=== PATIENT | female | born 1980 | race Caucasian/White ===

== ENCOUNTER 2024-07-27 12:59 | Outpatient (CLI) | payer OTHER, SELFPAY ==
--- NOTE | 2024-07-27 13:00 | CRLHL7_ITS ---
For Patients: As a result of the Century Cures Act, medical imaging exams and procedure reports are released immediately into your electronic medical record. You may view this report before your referring provider. If you have questions, please contact your health care provider. OB ULTRASOUND JEFF by LMP: 09/22/2024. GA: 31w, 6d. Single. INDICATION: Biophysical profile and OB follow-up. CERVIX: Visualized. POSITIONING: Vertex. AMNIOTIC FLUID: 16.8 cm SDP BIOPHYSICAL PROFILE: Total score: 8/8. Gross body movements: 2. tone: 2. Respiratory activity: 2. Amniotic fluid: 2. (SDP N: Increase 2 x 1 cm) PLACENTA: Technique: Transabdominal. PLACENTA POSITION: Anterior. DOPPLER: heart rate: 144 bpm. Biometry: BPD: 8.5 cm. 34 w, 2 d, 95.6%. HC: 31.2 cm. 35 w, 0 d, 89%. AC: 30.1 cm. 34 w, 0 d, 95%. FL: 6.5 cm. 33 w, 4 d, 81%. FL/AC ratio: 21.6 percent. HC/AC ratio: 1.04. EFW: 2333 g. Weight: 5 lbs, 12 oz. age by this US: 34 w, 2 d. JEFF by this US: 09/05/2024. Percentile by JEFF: 95%. IMPRESSION: 1. Single live intrauterine gestation 34 weeks 2 days, JEFF 09/05/2024. Estimated weight 2333 grams lying at the 95th percentile. 2. Biophysical profile score 8 of 8. Sharmin Morales M.D. Diagnostic/Breast Radiologist [email or web address]/Dictated by: Sharmin Morales MD @ 07/30/2024 6:11:00 PM (Electronically Signed)
== END 2024-07-27 13:00 | disposition home or self-care (01) ==
LOC: US 13:00
PROVIDERS: PCP Family Medicine; Visit Provider Obstetrics & Gynecology
DX: Z34.93 Encounter for supervision of normal pregnancy, unspecified, third trimester (principal); Z3A.31 31 weeks gestation of pregnancy
CPT/HCPCS: 76816; 76819

== ENCOUNTER 2024-08-03 11:33 | Outpatient (CLI) | payer OTHER, SELFPAY | END 2024-08-03 11:34 | disposition home or self-care (01) | PROVIDERS: PCP Family Medicine; Visit Provider Obstetrics & Gynecology | DX: O13.3 Gestational [pregnancy-induced] hypertension without significant proteinuria, third trimester (principal); Z3A.32 32 weeks gestation of pregnancy | CPT/HCPCS: 82565; 82570; 84156; 84443; 84450; 84460 ==

== ENCOUNTER 2024-08-04 08:17 | Outpatient (CLI) | payer OTHER, SELFPAY | END 2024-08-04 08:18 | disposition home or self-care (01) | LOC: NFLDREF 13:34 | PROVIDERS: PCP Family Medicine; Referring Provider Family Medicine; Visit Provider Obstetrics & Gynecology | DX: O13.3 Gestational [pregnancy-induced] hypertension without significant proteinuria, third trimester (principal); Z3A.32 32 weeks gestation of pregnancy | CPT/HCPCS: 82565; 84450; 84460; 84520; 84550 ==

== ENCOUNTER 2024-08-06 08:48 | Outpatient (CLI) | payer OTHER, SELFPAY | END 2024-08-06 08:49 | disposition home or self-care (01) | LOC: NFLDREF 20:01 | PROVIDERS: PCP Family Medicine; Referring Provider Family Medicine; Visit Provider Obstetrics & Gynecology | DX: O16.9 Unspecified maternal hypertension, unspecified trimester (principal) | CPT/HCPCS: 82570; 84156 ==

== ENCOUNTER 2024-08-09 12:25 | Outpatient (CLI) | payer OTHER, SELFPAY ==
[2024-08-09] VITALS (9 sets, daily range): BP systolic 122–131; BP diastolic 73–93; PULSE 68–84; O2SAT 100
[2024-08-09 13:17] LABS: Hematocrit 34.1 % (33.0-51.0); Hemoglobin* 11.6 gm/dL (12.0-16.0); Mean Corpuscular HGB Conc 34 gm/dL (32-36); Mean Corpuscular Hemoglobin 29 pg (26-34); Mean Corpuscular Volume 86 fL (80-100); Platelet Count* 226 K/uL (140-440); Red Blood Count 3.95 m/uL (4.00-5.20); White Blood Count* 9.12 K/uL (4.50-11.00)
[2024-08-09 13:18] LABS: Slide Review Reflex No
[2024-08-09 13:31] LABS: Alanine Aminotransferase* 28 U/L (4-35); Aspartate Amino Transferase* 43 U/L (12-35); Blood Urea Nitrogen* 10 mg/dL (5-24); Creatinine* 0.8 mg/dL (0.5-1.5); Estimated Glomerular Filt Rate 95 ml/min
[2024-08-09 13:32] LABS: Total Protein Urine 7 mg/dL
[2024-08-09 13:33] LABS: Protein Creatinine Ratio Urine 0.08 (0-0.19)
--- NOTE | 2024-08-09 19:58 | PC.OBNST ---
NST Note NST Note Start: 08/09/24 12:33 Freq: ONCE Status: Active Protocol: Document 08/09/24 17:50 JRS (Rec: 08/09/24 17:58 JRS Desktop) NST Note 4 Para (# of births) 1 EDC 09/22/24 Gestational Age In Weeks & Days 33 Weeks & 5 Days High Risk Factors High Blood Pressure - Preexisting Patient Presented with Complaint(s) of Other Other Complaints Pt. here for increased BP at home. Reactive Yes Appropriate for Gestational Age Yes RN Adrian RN Date 08/09/24 Reactive Yes Appropriate for Gestational Age Yes RN Eros Daley RN Date 08/09/24 OB NST charge Yes Complete NST Note via Write Note Yes The provider's electronic signature indicates the NST is reactive/appropriate for gestational age. *Note to provider: If an addendum is required, open the patient's chart and click on the note under the Nurse/Allied Health tab.
== END 2024-08-09 14:40 | disposition home or self-care (01) ==
LOC: OB OUT 12:25 → OB 12:26 → OB OUT 14:55
PROVIDERS: PCP Family Medicine; Visit Provider Obstetrics & Gynecology
DX: O10.913 Unspecified pre-existing hypertension complicating pregnancy, third trimester (principal); Z3A.33 33 weeks gestation of pregnancy
CPT/HCPCS: 36415; 59025; 82565; 82570; 84156; 84450; 84460; 84520; 85027; G0463

== ENCOUNTER 2024-08-10 12:08 | Outpatient (CLI) | payer OTHER, SELFPAY | END 2024-08-10 12:09 | disposition home or self-care (01) | LOC: NFLDREF 12:10 | PROVIDERS: PCP Family Medicine; Visit Provider Obstetrics & Gynecology | DX: O10.913 Unspecified pre-existing hypertension complicating pregnancy, third trimester (principal); Z3A.33 33 weeks gestation of pregnancy | CPT/HCPCS: 82565; 82570; 84156; 84450; 84460; 84520 ==

== ENCOUNTER 2024-08-15 15:37 | Outpatient (CLI) | payer OTHER, SELFPAY | END 2024-08-15 15:38 | disposition home or self-care (01) | PROVIDERS: PCP Family Medicine; Visit Provider Obstetrics & Gynecology | DX: O10.913 Unspecified pre-existing hypertension complicating pregnancy, third trimester (principal); Z3A.34 34 weeks gestation of pregnancy | CPT/HCPCS: 76819; 82565; 82570; 84156; 84450; 84460; 84520 ==

== ENCOUNTER 2024-08-16 11:40 | Outpatient (CLI) | payer OTHER, SELFPAY ==
[2024-08-16] VITALS (9 sets, daily range): BP systolic 117–131; BP diastolic 85–89; PULSE 68–86; TEMP 37; O2SAT 97–99
[2024-08-16 12:26] LABS: Hematocrit 36.3 % (33.0-51.0); Mean Corpuscular HGB Conc 33 gm/dL (32-36); Mean Corpuscular Hemoglobin 29 pg (26-34); Mean Corpuscular Volume 87 fL (80-100); Platelet Count* 193 K/uL (140-440); Red Blood Count 4.16 m/uL (4.00-5.20); White Blood Count* 8.69 K/uL (4.50-11.00)
[2024-08-16 12:29] LABS: Slide Review Reflex No
[2024-08-16 12:42] LABS: Aspartate Amino Transferase* 57 U/L (12-35); Creatinine* 0.7 mg/dL (0.5-1.5); Estimated Glomerular Filt Rate 111 ml/min
[2024-08-16 12:43] LABS: Alanine Aminotransferase* 61 U/L (4-35); Blood Urea Nitrogen* 12 mg/dL (5-24)
[2024-08-16 12:44] LABS: Total Protein Urine 11 mg/dL
[2024-08-16 12:45] LABS: Creatinine Urine 23.4 mg/dL; Protein Creatinine Ratio Urine 0.47 (0-0.19)
[2024-08-16] MEDS: BETAMETHASONE SOD PHOS/ACETATE 6 MG/ML ML 12 MG IM (13:11)
--- NOTE | 2024-08-16 13:32 | PC.OBNST ---
NST Note NST Note Start: 08/16/24 11:50 Freq: ONCE Status: Active Protocol: Document 08/16/24 13:29 MANDAEN (Rec: 08/16/24 13:31 MANDAEN [id number]) NST Note 4 Para (# of births) 1 EDC 09/22/24 Gestational Age In Weeks & Days 34 Weeks & 5 Days High Risk Factors High Blood Pressure - Preexisting,Advanced Maternal Age,History of Labor/ Delivery Patient Presented with Complaint(s) of Other Other Complaints Provider requesting patient come and be seen for blood pressure evaluations and repeat Pre E labs. Reactive Yes Appropriate for Gestational Age Yes LUZ MARINA Perez Date 08/16/24 Reactive Yes Appropriate for Gestational Age Yes LUZ MARINA López Date 08/16/24 OB NST charge Yes Complete NST Note via Write Note Yes The provider's electronic signature indicates the NST is reactive/appropriate for gestational age. *Note to provider: If an addendum is required, open the patient's chart and click on the note under the Nurse/Allied Health tab.
== END 2024-08-16 13:10 | disposition home or self-care (01) ==
LOC: OB OUT 11:40 → OB 11:40
PROVIDERS: PCP Family Medicine; Visit Provider Obstetrics & Gynecology
DX: O10.913 Unspecified pre-existing hypertension complicating pregnancy, third trimester (principal); O09.523 Supervision of elderly multigravida, third trimester; Z3A.34 34 weeks gestation of pregnancy
CPT/HCPCS: 36415; 59025; 82565; 82570; 84156; 84450; 84460; 84520; 85027; G0463; J0702

== ENCOUNTER 2024-08-17 11:28 | Outpatient (CLI) | payer OTHER, SELFPAY ==
[2024-08-17 11:33] VITALS: BP 128/86; PULSE 71
--- NOTE | 2024-08-17 11:33 | CRLHL7_ITS ---
For Patients: As a result of the Century Cures Act, medical imaging exams and procedure reports are released immediately into your electronic medical record. You may view this report before your referring provider. If you have questions, please contact your health care provider. INDICATION: Right upper quadrant abdomen pain. TECHNIQUE: Ultrasound abdomen limited. Sonographic images of the right upper quadrant were obtained using aguilar-scale and color Doppler images. COMPARISON: None. FINDINGS: Liver: Normal in size and echotexture. No suspicious masses. No intrahepatic biliary dilatation. Gallbladder: No stones or sludge. Normal wall thickness. No pericholecystic fluid. Negative sonographic Mcwilliams`s sign. Common bile duct: 3 mm. Pancreas: Unremarkable. Right kidney: Normal in size. Normal echotexture and cortex. No suspicious masses, stones, or hydronephrosis. Vasculature: Proximal abdominal aorta and IVC are unremarkable. IMPRESSION: Unremarkable right upper quadrant ultrasound. Dictated by Joe Mendoza MD @ 08/17/2024 12:42:01 PM (Electronically Signed)
--- NOTE | 2024-08-17 11:33 | CRLHL7_ITS ---
For Patients: As a result of the Century Cures Act, medical imaging exams and procedure reports are released immediately into your electronic medical record. You may view this report before your referring provider. If you have questions, please contact your health care provider. INDICATION: Nonreassuring heart tones in clinic COMPARISON: 08/15/2024 TECHNIQUE: Montelongo-scale and color Doppler of the gravid uterus and fetus from a transabdominal approach. FINDINGS: Established gestational age: 34 weeks 6 days Single intrauterine gestation in a vertex presentation. heart rate is 139 bpm. No pleural effusion, pericardial effusion, ascites, or skin edema. Biparietal diameter: 8.8 cm Head circumference: 32.0 cm Abdominal circumference: 32.7 cm Femur length: 7.0 cm HC/AC: 0.98, normal. The composite ultrasound estimated gestational age is 36 weeks 1 day. The estimated weight is 2891 grams, or 6 pounds 6 ounces. This corresponds to the 84th percentile for gestational age. The placenta is anterior. No previa. No periplacental hemorrhage. WELLBEING tone: 2/2 movement: 2/2 breathin/2 Amniotic fluid volume: 2/2 The single deepest vertical pocket measures: 8.7 cm. The amniotic fluid index is 25.5 cm, recently 22.2 cm. IMPRESSION: 1. Single intrauterine gestation. 2. heart rate is 139 beats per minute and regular. 3. Biophysical profile score is 8/8. 4. Polyhydramnios with an amniotic fluid index of 25.5 cm. No hydrops. The stomach is seen in a single view and appears normal. Dictated by Anushka Lizama MD @ 08/17/2024 12:46:57 PM (Electronically Signed)
[2024-08-17 11:34] VITALS: RESP 18; TEMP 36.5
[2024-08-17 12:21] VITALS: BP 137/74; PULSE 83
[2024-08-17 12:36] VITALS: BP 129/80; PULSE 86
[2024-08-17] MEDS: ACETAMINOPHEN 500 MG TABLET 1000 MG PO (12:37)
[2024-08-17] MEDS: BETAMETHASONE SOD PHOS/ACETATE 6 MG/ML ML 12 MG IM (12:37)
[2024-08-17 13:11] VITALS: BP 129/79; PULSE 72
--- NOTE | 2024-08-17 14:39 | PC.OBNST ---
NST Note NST Note Start: 08/17/24 11:33 Freq: ONCE Status: Active Protocol: Document 08/17/24 14:36 VERNA (Rec: 08/17/24 14:39 VERNA Desktop) NST Note 4 Para (# of births) 1 EDC 09/22/24 Gestational Age In Weeks & Days 34 Weeks & 6 Days High Risk Factors High Blood Pressure - Preexisting Patient Presented with Complaint(s) of Other Other Complaints Pt. presents from [facility] with orders to continuous EFM, Abdominal US, include Growth and BPP, Labs pending. Dx now Chronic HTN with Superimposed Pre Eclampsia without severe features. Reactive Yes Appropriate for Gestational Age Yes LUZ MARINA Cancino Date 08/17/24 Reactive Yes Appropriate for Gestational Age Yes LUZ MARINA Alvarado RN Date 08/17/24 OB NST charge Yes Complete NST Note via Write Note Yes The provider's electronic signature indicates the NST is reactive/appropriate for gestational age. *Note to provider: If an addendum is required, open the patient's chart and click on the note under the Nurse/Allied Health tab.
== END 2024-08-17 14:20 | disposition home or self-care (01) ==
LOC: OB OUT 11:31 → OB 11:32
PROVIDERS: PCP Family Medicine; Visit Provider Obstetrics & Gynecology
DX: O10.913 Unspecified pre-existing hypertension complicating pregnancy, third trimester (principal); Z3A.34 34 weeks gestation of pregnancy
CPT/HCPCS: 59025; 76705; 76816; 76819; 82565; 82570; 84156; 84450; 84460; 84520; 84550; G0463; A9270; J0702

== ENCOUNTER 2024-08-21 10:37 | Outpatient (CLI) | payer OTHER, SELFPAY | END 2024-08-21 10:38 | disposition home or self-care (01) | PROVIDERS: PCP Family Medicine; Visit Provider Obstetrics & Gynecology | DX: O11.3 Pre-existing hypertension with pre-eclampsia, third trimester (principal); O09.523 Supervision of elderly multigravida, third trimester; Z3A.35 35 weeks gestation of pregnancy | CPT/HCPCS: 82565; 84450; 84460; 84520; 84550 ==

== ENCOUNTER 2024-08-21 21:33 | Inpatient (IN) | payer OTHER, SELFPAY ==
[2024-08-21 21:38] VITALS: PULSE 78; O2SAT 97
[2024-08-21 21:43] VITALS: BP 147/91; PULSE 72; PULSE 73; PULSE 76; O2SAT 93; O2SAT 96
[2024-08-21] MEDS: LACTATED RINGERS 1000 ML 1,000 ML 800 ML IV (21:45)
[2024-08-21 21:48] VITALS: PULSE 73; O2SAT 97
[2024-08-21] MEDS: MAGNESIUM IV 4 GM/100 ML PIGGYBACK IVPB (21:48)
[2024-08-21 21:50] VITALS: BP 147/89; PULSE 74
[2024-08-21 21:54] LABS: Hemoglobin* 10.9 gm/dL (12.0-16.0); Mean Corpuscular HGB Conc 34 gm/dL (32-36); Mean Corpuscular Hemoglobin 30 pg (26-34); Mean Corpuscular Volume 87 fL (80-100); Platelet Count* 203 K/uL (140-440); Red Blood Count 3.68 m/uL (4.00-5.20)
[2024-08-21 21:56] LABS: Slide Review Reflex No
[2024-08-21 22:06] VITALS: BMI 28.8
[2024-08-21 22:13] LABS: Alanine Aminotransferase* 119 U/L (4-35); Aspartate Amino Transferase* 121 U/L (12-35); Creatinine* 0.7 mg/dL (0.5-1.5); Est. Creatinine Clearance* 95.17; Estimated Glomerular Filt Rate 111 ml/min
--- NOTE | 2024-08-21 22:14 | PM.OBHPCS1 ---
OB - H&P: HPI History of Present Illness Chief complaint: Maternity Narrative: Jb Dyer is a 43 year old female admitted for superimposed preeclampsia with severe features due to transaminitis. is otherwise complicated by chronic HTN, prior , AMA, IVF gestation, mild polyhydramnios, subclinical hypothyroidism, GERD. She was planning repeat delivery with bilateral salpingectomy. Jb has been followed closely over the last few days given blood pressure exacerbation with new finding of mild transaminitis. Today she was seen in the clinic for nurse visit for NST, where lab subsequently returned with significant increase in her liver function test. Recommended she present to care for admission and delivery in the setting of superimposed preeclampsia with severe features. On arrival, patient notes she is overall feeling well. Denies headache, vision changes, right upper quadrant pain, epigastric pain, chest pain or dyspnea. She denies regular/painful uterine contractions, vaginal bleeding or leaking of fluids. Endorses active movement. Specific Issues/Plans MD H&P # Chronic HTN with Superimposed Preeclampsia w/o severe features. Started on Labetalol 100mg BID 08/10/24, increase 200mg BID 08/15/24. H/o superimposed preeclampsia. baseline labs: normal, including normal protein:creatinine but no 24 hour urine Daily low dose aspirin HELLP labs 08/03: normal, aside from AST 42, protein:creatinine 0.30 Repeat HELLP labs 08/04: normal aside from AST 38 24 hour urine protein: 210 mg on 08/06 Delivery at 37 weeks-change repeat section to 09/01/24 Increasing trend liver enzymes, close monitoring for r/o of severity (34 weeks)-S/P Betamethasone x2 completed on 08/17/24. Abdominal US 08/17/24: Negative. #Mild Polyhydramnios PROMISE: 25.5cm 08/17/24 # Transfer of care from [place] # IVF with donor egg. Preimplantation genetic testing completed. Normal echocardiogram on 06/07/24. # H/o . Planning repeat with bilateral salpingectomy # Hypothyroidism Levothyroxine dose: 100mcg Check TSH and Free T4 each trimester 08/03 TSH = 1.480 # AMA Low risk NIPS Level 2 US # Low lying placenta - resolved on 06/07/24. monitoring plan: UPDATED 08/10/24 Twice weekly monitoring alternating BPP and NST Growth US every 4 weeks Weekly HELLP labs Labs: B positive, antibody negative, hgb 13.9, plt 286, rubella positive, rpr nonreactive, Hep B antibody positive, Hep B antigen negative, GC/chlam neg/neg, UC: mixed microbiota, Hep C negative, varicella positive. Baseline pre E: AST 24, ALT 15, P/C 0.19 TSH 5-20: 0.06, 8: 1.0 06-27-24: 1hr glucose: 78 Pap: 12-24-21: NIL, negative HPV Ultrasound: 02-11-24: single, IUP w/ CRL consistent with IVF transfer date and earlier US 04-20-24: Level 2 US: No anomalies. Incomplete anatomy survey d/t position. Intracardiac focus noted in left ventricle. Placenta appears low lying only 5mm from internal os. Cervical length too limited to assess. 06-07-24: Placenta is anterior and there is no evidence of previa. Normal amniotic fluid. biometry 87th percentile. Cervical length 27mm. anatomy survey completed and appears normal. 08/17/2024: Vertex, EFW: 2891 g, 84th percentile. Abdominal circumference: 93rd percentile. Single deepest pocket of amniotic fluid: 8.7 cm, PROMISE: 25.5 cm. BPP 06/01. Flu: [] Covid: completed, not up to date w/ booster. recommended. [] Tdap 06/27 RSV: 08/03/24 PFSH PFS Medical History (Updated 08/21/24 @ 22:58 by Phyllis Stoddard MD) Miscarriage ?O03.9 - Complete or unspecified spontaneous without complication (ICD-10) History of ectopic ?Z87.59 - Personal history of other complications of , childbirth and the puerperium (ICD-10) Surgical History (Updated 07/10/24 @ 23:22 by Aga Liang CNP) History of delivery ?Z98.891 - History of uterine scar from previous surgery (ICD-10) History of hysterosalpingogram (12/02/16) ?Z98.890 - Other specified postprocedural states (ICD-10) History of eye surgery (08/2020) ?Z98.890 - Other specified postprocedural states (ICD-10) Family History (Updated 06/28/24 @ 14:18 by Regi Berrios) Sister Lopez's syndrome Social History (Updated 07/05/24 @ 07:38 by Lynda Castro MA) What is your current living situation?: I presently have a place to live Problems where you live: no known problems In the past 12 months, utilities in danger of being shut off: no In past 12 months, lack of transportation kept you from medical appts, meetings, work, or getting things needed for daily living: no In the past 12 mos, have been you worried that your food would run out before you had money to buy more?: never true In the past 12 mos, the food you bought just didn't last and you didn't have money to buy more?: never true Smoking Status: Never smoker How often does anyone, including family, friends and others, physically hurt you: never How often does anyone, including family, friends and others, insult or talk down to you: never How often does anyone, including family, friends and others, threaten you with harm: never How often does anyone, including family, friends and others, scream or curse at you: never Little interest or pleasure in doing things: not at all Feeling down, depressed, or hopeless: not at all Meds Home Medications and Allergies Home Medications ?Medication ?Instructions ?Recorded ?Confirmed ?Type aspirin 81 mg tablet,delayed 81 mg PO QDAY 07/05/24 08/21/24 History release (Adult Aspirin Regimen) cholecalciferol (vitamin D3) 10 10 mcg PO QDAY 07/05/24 08/21/24 History mcg (400 unit) capsule docosahexaenoic acid 200 mg 200 mg PO DAILY PRN 07/05/24 08/21/24 History capsule ( DHA) famotidine 20 mg tablet 20 mg PO QDAY 07/05/24 08/21/24 History labetalol 100 mg tablet 200 mg PO BID 08/17/24 08/21/24 History Allergies Allergy/AdvReac Type Severity Reaction Status Date / Time amoxicillin (From Augmentin) AdvReac Mild Verified 08/21/24 22:10 clavulanic acid (From AdvReac Mild Verified 10/28/24 22:10 Augmentin) OB - H&P: Exam Physical Exam: Vital signs: Pulse BP Pulse Ox 74 147/89 H 97 08/21/24 21:50 08/21/24 21:50 08/21/24 21:48 Narrative: General: Alert and oriented, in no acute distress Psych: Appropriate mood and affect Heart: Regular rate and rhythm, no rubs murmurs or gallops Lungs: Clear to posterior auscultation throughout. No wheezes, rales or crackles. Abdomen: Gravid. No right upper quadrant or epigastric tenderness. Baby palpates vertex by Bandar's, EFW 2891g by US on 08/17/24. NST: Reactive NST. Baseline is 130bpm, moderate variability, several qualifying 15x15 accels present, no decelerations noted. [place]: Rare uterine contractions OB - Results Labs Labs: Short CBC 08/21/24 Range/Units 21:47 WBC 10.90 (4.50-11.00) K/uL Hgb 10.9 L (12.0-16.0) gm/dL Hct 32.0 L (33.0-51.0) % Plt Count 203 (140-440) K/uL Assessment and Plan Assessment and plan (1) Chronic hypertension complicating or reason for care during : Status: Acute (2) resulting from in-vitro fertilization: Status: Acute (3) GERD (gastroesophageal reflux disease): Status: Acute (4) Infertility: Status: Acute (5) Subclinical hypothyroidism: Status: Acute (6) Advanced maternal age (AMA), 40 years or greater: Status: Acute (7) Pre-eclampsia superimposed on chronic hypertension: Status: Acute Plan Jb is a 43yo at 35w3d GA admitted for superimposed preeclampsia with severe features. is otherwise complicated by chronic HTN, prior , AMA, IVF gestation, mild polyhydramnios, subclinical hypothyroidism, GERD. We discussed the diagnosis of superimposed preeclampsia with severe features in detail. Patient asymptomatic with mild range BP at this time. She is s/p RUQ US to rule out gallbladder pathology as the etiology behind her transaminitis on 08/16/24. In addition, this diagnosis is most consistent with her recent BP exacerbation necessitating increased labetolol. As such, I do recommend medically indicated delivery tonight. Patient had been planning a repeat with bilateral salpingectomy at term. She is certain she wishes to proceed with a repeat tonight. We extensively discussed the procedure in detail, including risks, benefits and alternatives. Reviewed the risk of hemorrhage, for which patient would be agreeable to blood transfusion and all indicated procedures (including hysterectomy) if absolutely necessary. Discussed pharmacologic and conservative surgical measures that would be performed 1st, where I will avoid Methergine given her preeclampsia severe features. Reviewed risk of infection and antibiotic prophylaxis. Discussed risk of damage to surrounding structures including uterus, tubes, ovaries, bowel, bladder, baby and blood vessels. Finally, Jb in her partner did re-discuss whether not they wish to proceed with permanent contraception via bilateral salpingectomy still given this unplanned late delivery. We reviewed the risks/benefits and discussed a very reasonable alternative would be a LARC (such as IUD). After this discussion, Jb is certain with her decision to proceed with bilateral salpingectomy. Written consent was obtained. - Initial BP is mild range, plan diligent BP monitor with treatment of sustained SRBP as necessary - Magnesium sulfate ongoing for seizure prophylaxis, plan to continue this for 24 hours - Repeat HELLP labs and obtain T/S on admission. Plan to trend HELLP labs Q6H while on mag. - Plan perioperative Ancef - BT B+ - Pediatrics to attend delivery in the setting of late delivery. Jb is s/p JAGUARZ on 08/17.
[2024-08-21] MEDS: MAGNESIUM Infusion 40 GM/1,000 ML IV.SOLN IVPB (22:22)
[2024-08-21 22:53] VITALS: BP 159/82; PULSE 76; RESP 18; TEMP 36.9
[2024-08-21] MEDS: LACTATED RINGERS 1000 ML 1,000 ML 125 ML IV (23:00)
[2024-08-21] MEDS: CEFAZOLIN 2 GM INJ IVP (23:15)
[2024-08-21] MEDS: OXYTOCIN 30 unit/500 ML in NS 30 UNIT/500 ML BAG 300 UNIT IVPB (23:50)
[2024-08-21] MEDS: TRANEXAMIC ACID 100 MG/ML INJ 1000 MG IV (23:51)
[2024-08-22] VITALS (43 sets, daily range): BP systolic 116–154; BP diastolic 71–90; PULSE 55–81; RESP 12–18; TEMP 36.4–36.6; O2SAT 93–100
[2024-08-22] MEDS: KETOROLAC 30 MG/ML inj IVP ×4 (00:38→18:48)
--- NOTE | 2024-08-22 01:05 | P.OBPRC_ITS ---
Procedure Time Seen by Provider: 00:38 Date of procedure: 08/22/24 Pre-op diagnosis: Superimposed preeclampsia with severe features, 35 weeks gestation, IVF , AMA Post-op diagnosis: same Procedure Done: Global Will [facility] bill your pro fee for this procedure?: Yes Blood Loss Measurement Type: QBL (245) Bakri Used: No IV fluids (mL): 800 Urine Output (mL): 700 Surgeon: Marla Stoddard MD Anesthesia Type: Spinal Findings: Dense adhesions between the anterior rectus fascia and subcutaneous tissues and underlying musculature Thin lower uterine segment Thin adhesions between the bilateral fallopian tubes and ovaries, otherwise normal adnexal survey Procedure Name: Repeat delivery, bilateral salpingectomy Procedure Description: Patient was taken to the operating room with IV running with magnesium sulfate. She received cefazolin in preoperative prophylaxis. Spinal anesthesia was administered. Singh catheter was inserted. She was prepped and draped in the usual sterile fashion. Anesthesia was tested and found to be adequate. A low-transverse skin incision was made with a scalpel along existing scar and carried through to the underlying layer of fascia with the scalpel. The subcutaneous fat was dissected off the underlying fascia with Bovie and blunt dissection. The fascia was nicked in the midline with a scalpel, which was noted to be markedly thickened at the midline and adhesed to underlying muscles and pre-peritoneal tissues. The fascia was nicked just lateral to midline to vi sualize the underlying rectus abdominus muscles, where adhesions were again noted (left greater than right). The incision was extended laterally with incisions. The fascia was grasped with Vince clamps and elevated, where sharp and blunt dissection was utilized to free the lateral fascia from underlying musculature. Attention was then turned to the midline, where a scalpel was utilized to dissect the fascia off underlying musculature. Defect in the peritoneum was noted anterior to the fascial incision, where there were thin adhesions of the omentum to the anterior abdominal wall. This was taken down with ligasure and noted to be hemostatic. Digital sweep confirmed no additional adhesions to the anterior abdominal wall. The peritoneal opening was extended laterally with blunt dissection and electrocautery. Spencer O retractor was inserted and tightened down, providing excellent visualization of the lower uterine segment. The bladder reflection was found to be advanced along the lower uterine segment. A bladder flap was created with a combination of sharp and blunt dissection. The lower uterine segment was visually thin, where a low-transverse uterine incision was carefully made with a scalpel. Incision was widened bluntly. The infant's head was grasped through the hysterotomy en caul, where rupture of membranes occurred with delivery of the head through the hysterotomy. The remainder of the body delivered without incident with the help of fundal pressure. No nuchal cord was noted. Spontaneous crying and tone was noted in the . Cord was clamped and cut after 30 seconds. Infant was handed off to attending Pediatrics provider and nurses. The placenta was delivered with gentle traction on the cord. The uterus was cleaned of all clots and debris with the dry lap pad. The hysterotomy was reapproximated with 0 Vicryl in a running, locked fashion. Second layer of the same suture was used in imbricating fashion to obtain hemostasis. Care was made throughout hysterotomy closure to as to not tear through the thin lower uterine segment. 1g IV TXA was administered for intermittent excess bleeding. Uterine tone was excellent throughout. The adnexa were examined and noted to be normal in appearance. Thin adhesions were noted as above between the bilateral tubes and ovaries, taken down with electrocautery. Jb confirmed desire for surgical sterilization again verbally. The right fallopian tube was elevated with two Babcocks. The right fallopian tube was sequentially ligated and transected from the mesosalpinx using the Ligasure cautery device. We proceeded from the fimbriated end, lateral to medial, and the tube was amputated at the right uterine cornua. The same procedure was performed on the left. Both salpingectomy sites were inspected and noted to be hemostatic. The cul-de-sac and gutters were cleansed with dampened laparotomy sponge, removing any further clots and debris. The hysterotomy and bladder flap were reinspected and noted to be hemostatic. The Spencer O retractor was removed. The hysterotomy was reexamined and found to be hemostatic. The rectus muscles were serially elevated with Vince clamps, thoroughly examined and made hemostatic with electrocautery. Muscle discruption wd from entry on the bilateral superior rectus muscles, where Von was applied prior to fascial closure. Excellent hemostasis was again noted throughout. The fascia was reapproximated with looped 0 PDS in a running fashion. Subcutaneous fat was irrigated and Bovie used on oozing vessels. The subcutaneous fat was reapproximated with 2 0 vicryl suture in a continuous fashion. The skin was closed with a subcuticular stitch of 3-0 monocryl. Surgical glue was applied above this. Patient tolerated procedure well was taken to recovery area in stable condition. Surgical debrief was completed. details: - Liveborn male fetus - weight: pending - APGARs were 7 and 8 at 1 and 5 minutes respectively - did require respiratory support with CPAP in the OR, please see documentation by RADIATION / CHEMISTRY TECHNICIAN for complete details. Pathology: specimen obtained, sent to pathology Surgery Debrief Performed: Yes Condition: stable Disposition: floor
--- NOTE | 2024-08-22 01:08 | W.ANESCHARGE ---
Anesthesia Charges Start Date/Time Anesthesia Start Date: 08/21/24 Anesthesia Start Time: 23:03 Stop Date/Time Anesthesia Stop Date: 08/22/24 Anesthesia Stop Time: 01:01 Summary Emergency: PUBLIC HEALTH INSPECTOR
--- NOTE | 2024-08-22 01:09 | P.NB_ITS ---
Nerve Block Nerve Block Time Seen by Provider: 12:55 Date Seen: 08/21/24 Type of block requested by surgeon for post-operative analgesia: TAP Side: bilateral Time out performed: Yes Verification of patient name: Yes Verification of date of : Yes Site marking: site marked Name of person performing procedure: Elvis Messina Continuous monitoring Was continuous monitoring of O2 sat, B/P, classroom monitor, recorded every 15 minutes?: Yes Procedure Checklist: sterile prep, needles and gloves Ultrasound guided. Images saved: Yes Medications given in 5ml increments after negative aspiration: Marcaine %: 0.25 mL: 30 Needle gauge: 20 and Exparel mL: 10 Needle gauge: 20 Patient tolerated procedure well: Yes Additional comments: Injected in 5ml increments after negative aspiration Block Charges Block Charge (with Pro Fee): TAP Bilateral Use of Ultrasound Machine for Block: Yes- US Guidance/pain block
[2024-08-22] MEDS: ONDANSETRON 2 MG/ML inj 4 MG IV (02:35)
[2024-08-22 03:55] LABS: Hematocrit 34.8 % (33.0-51.0); Hemoglobin* 11.7 gm/dL (12.0-16.0); Mean Corpuscular HGB Conc 34 gm/dL (32-36); Mean Corpuscular Hemoglobin 29 pg (26-34); Mean Corpuscular Volume 87 fL (80-100); Platelet Count* 193 K/uL (140-440); Red Blood Count 3.99 m/uL (4.00-5.20); White Blood Count* 16.42 K/uL (4.50-11.00)
[2024-08-22 04:00] LABS: Slide Review Reflex No
[2024-08-22 04:10] LABS: Alanine Aminotransferase* 124 U/L (4-35); Aspartate Amino Transferase* 129 U/L (12-35); Blood Urea Nitrogen* 10 mg/dL (5-24); Creatinine* 0.7 mg/dL (0.5-1.5); Est. Creatinine Clearance* 95.17; Estimated Glomerular Filt Rate 111 ml/min
[2024-08-22 04:24] LABS: Magnesium* 5.5 mg/dL (1.5-2.6)
[2024-08-22] MEDS: LACTATED RINGERS 1000 ML 1,000 ML 125 ML IV ×2 (06:34→06:35)
--- NOTE | 2024-08-22 08:24 | PM.OBPNVD1 ---
OB - PN:Subj Subjective Date Seen: 08/22/24 Interval history: Jb is a 43-year-old G 4 now P 0222 woman who is status post repeat with bilateral salpingectomy on 08/22 at 35 3/7 weeks' gestation in the setting of chronic hypertension with superimposed severe pre eclampsia diagnosed on the basis of transaminitis. OB PROBLEM LIST # Chronic HTN with Superimposed Preeclampsia w/o severe features. Started on Labetalol 100mg BID 08/10/24, increase 200mg BID 08/15/24. H/o superimposed preeclampsia. baseline labs: normal, including normal protein:creatinine but no 24 hour urine Daily low dose aspirin HELLP labs 08/03: normal, aside from AST 42, protein:creatinine 0.30 Repeat HELLP labs 08/04: normal aside from AST 38 24 hour urine protein: 210 mg on 08/06 Delivery at 37 weeks-change repeat section to 09/01/24 Increasing trend liver enzymes, close monitoring for r/o of severity (34 weeks)-S/P Betamethasone x2 completed on 08/17/24. Abdominal US 08/17/24: Negative. #Mild Polyhydramnios PROMISE: 25.5cm 08/17/24 # Transfer of care from [place] # IVF with donor egg. Preimplantation genetic testing completed. Normal echocardiogram on 06/07/24. # H/o . Planning repeat with bilateral salpingectomy # Hypothyroidism Levothyroxine dose: 100mcg Check TSH and Free T4 each trimester 08/03 TSH = 1.480 # AMA Low risk NIPS Level 2 US # Low lying placenta - resolved on 06/07/24. Narrative: Plan is feeling very tired and itchy. She had nausea and vomiting this morning. She has only been able to eat a little bit of crackers and some water. She has no appetite at this time. Catheter still in place. Her infant was transferred to [facility], and she desperately wants to see him. She is trying to collect colostrum for him. OB - PN: Obj Exam Physical Exam: Vital signs: Temp Pulse Resp BP Pulse Ox O2 Del Method 97.6 F 55 L 16 123/79 96 Room Air 08/22/24 07:28 08/22/24 07:28 08/22/24 07:28 08/22/24 07:28 08/22/24 07:28 08/22/24 07:28 Urine output is 2.4 L since midnight. Narrative: General: Pleasant, lying in bed Heart: Regular rate and rhythm, no murmur or gallop Lungs: Clear to auscultation bilaterally Abdomen: Soft, nontender, fundus well below umbilicus, hypoactive bowel sounds, pressure dressing in place Lower extremities: SCDs in place bilaterally OB - PN: Obj Data Labs Labs: Laboratory Results - last 24 hr 08/21/24 08/22/24 21:47 03:50 WBC 10.90 16.42 H RBC 3.68 L 3.99 L Hgb 10.9 L 11.7 L Hct 32.0 L 34.8 MCV 87 87 MCH 30 29 MCHC 34 34 Plt Count 203 193 BUN 10 Creatinine 0.7 0.7 Estimated Creat Clear 95.17 95.17 Estimated GFR 111 111 Magnesium 5.5 H* AST 121 H 129 H ALT 119 H 124 H Blood Type B Positive Antibody Screen NEGATIVE Transaminases are currently at their highest at 3:50 a.m. this morning. OB - PN: A/P Delivery Assessment and Plan (1) Chronic hypertension complicating or reason for care during : Status: Acute Assessment and Plan: Continue labetalol at home doses (2) Pre-eclampsia superimposed on chronic hypertension: Problem details: Severe preeclampsia based on transaminitis Status: Acute Assessment and Plan: Currently on magnesium sulfate for seizure prophylaxis. Transaminases trending up slightly at last check. Otherwise, she is either normotensive or mildly hypertensive since delivery. We will continue her magnesium sulfate infusion until just before midnight, which will be 24 hours. Continue strict ins and outs. Given her terrible situation, being from her infant who is in the ICU, we will make every effort to discharge her tomorrow with strict instructions to check her blood pressures. Plan day: 1
[2024-08-22] MEDS: DOCUSATE SODIUM 100 MG CAPSULE PO (09:35)
[2024-08-22] MEDS: diphenhydrAMINE 50 MG/ML inj 12.5 MG IVP (09:36)
[2024-08-22 10:32] LABS: Aspartate Amino Transferase* 129 U/L (12-35); Creatinine* 0.7 mg/dL (0.5-1.5); Est. Creatinine Clearance* 95.17; Estimated Glomerular Filt Rate 111 ml/min
[2024-08-22 10:33] LABS: Alanine Aminotransferase* 114 U/L (4-35); Blood Urea Nitrogen* 9 mg/dL (5-24)
[2024-08-22 10:36] LABS: Hematocrit 34.3 % (33.0-51.0); Hemoglobin* 11.4 gm/dL (12.0-16.0); Mean Corpuscular HGB Conc 33 gm/dL (32-36); Mean Corpuscular Hemoglobin 29 pg (26-34); Mean Corpuscular Volume 87 fL (80-100); Platelet Count* 215 K/uL (140-440); Red Blood Count 3.93 m/uL (4.00-5.20); White Blood Count* 13.76 K/uL (4.50-11.00)
[2024-08-22 10:45] LABS: Slide Review Reflex No
[2024-08-22] MEDS: LEVOTHYROXINE 100 MCG TABLET PO (12:50)
[2024-08-22 16:01] LABS: Hematocrit 29.7 % (33.0-51.0); Mean Corpuscular HGB Conc 34 gm/dL (32-36); Mean Corpuscular Hemoglobin 29 pg (26-34); Mean Corpuscular Volume 87 fL (80-100); Platelet Count* 208 K/uL (140-440); Red Blood Count 3.42 m/uL (4.00-5.20); White Blood Count* 11.19 K/uL (4.50-11.00)
[2024-08-22 16:27] LABS: Slide Review Reflex No
[2024-08-22 16:32] LABS: Creatinine* 0.7 mg/dL (0.5-1.5); Est. Creatinine Clearance* 95.17; Estimated Glomerular Filt Rate 111 ml/min
[2024-08-22 16:33] LABS: Alanine Aminotransferase* 103 U/L (4-35); Aspartate Amino Transferase* 119 U/L (12-35); Blood Urea Nitrogen* 10 mg/dL (5-24)
[2024-08-22 16:43] LABS: Magnesium* 7.4 mg/dL (1.5-2.6)
[2024-08-22] MEDS: MAGNESIUM Infusion 40 GM/1,000 ML IV.SOLN IVPB (17:44)
[2024-08-22] MEDS: FERROUS SULFATE 325 MG TABLET PO (18:48)
[2024-08-22] MEDS: LACTATED RINGERS 1000 ML 1,000 ML 75 ML IV (19:39)
[2024-08-22] MEDS: LABETALOL HCL 100 MG TABLET 200 MG PO (21:16)
[2024-08-22 23:23] LABS: Alanine Aminotransferase* 114 U/L (4-35); Aspartate Amino Transferase* 130 U/L (12-35); Blood Urea Nitrogen* 10 mg/dL (5-24); Creatinine* 0.8 mg/dL (0.5-1.5); Est. Creatinine Clearance* 83.27; Estimated Glomerular Filt Rate 95 ml/min
[2024-08-22 23:27] LABS: Basophils Absolute Auto 0.02 K/uL (0.00-0.30); Basophils Percent Auto 0.2 % (0.0-3.0); Eosinophils Absolute Auto 0.04 K/uL (0.00-0.50); Eosinophils Percent Auto 0.4 % (0.0-7.0); Hematocrit 32.3 % (33.0-51.0); Hemoglobin* 10.6 gm/dL (12.0-16.0); Immature Granulocytes Abs Auto 0.11 K/uL (0.00-0.30); Immature Granulocytes Pct Auto 1.1 %; Lymphocytes Absolute Auto 3.65 K/uL (0.90-2.90); Lymphocytes Percent Auto 36.2 % (20-44); Mean Corpuscular HGB Conc 33 gm/dL (32-36); Mean Corpuscular Hemoglobin 29 pg (26-34); Mean Corpuscular Volume 89 fL (80-100); Monocytes Percent Auto 5.6 % (0.0-11.0); Neutrophils Percent Auto 56.5 % (42.0-72.0); Platelet Count* 217 K/uL (140-440); RDW Coefficient of Variation % 13.8 % (11.5-15.5); Red Blood Count 3.64 m/uL (4.00-5.20); White Blood Count* 10.09 K/uL (4.50-11.00)
[2024-08-22 23:34] LABS: Slide Review Reflex No
[2024-08-22 23:35] LABS: Magnesium* 7.4 mg/dL (1.5-2.6)
[2024-08-23 00:10] VITALS: RESP 12; O2SAT 98
[2024-08-23 00:38] VITALS: BP 131/80; PULSE 73; RESP 12; TEMP 36.9
[2024-08-23] MEDS: KETOROLAC 30 MG/ML inj IVP ×2 (00:50→06:37)
[2024-08-23 02:28] VITALS: BP 116/80; PULSE 71; RESP 16; TEMP 36.6; O2SAT 97
[2024-08-23 04:16] LABS: Hematocrit 28.6 % (33.0-51.0); Hemoglobin* 9.6 gm/dL (12.0-16.0); Mean Corpuscular HGB Conc 34 gm/dL (32-36); Mean Corpuscular Hemoglobin 29 pg (26-34); Mean Corpuscular Volume 88 fL (80-100); Platelet Count* 197 K/uL (140-440); Red Blood Count 3.27 m/uL (4.00-5.20)
[2024-08-23 04:18] LABS: Slide Review Reflex No
[2024-08-23 04:41] LABS: Creatinine* 0.7 mg/dL (0.5-1.5); Est. Creatinine Clearance* 95.17; Estimated Glomerular Filt Rate 111 ml/min
[2024-08-23 04:42] LABS: Alanine Aminotransferase* 103 U/L (4-35); Aspartate Amino Transferase* 120 U/L (12-35); Blood Urea Nitrogen* 11 mg/dL (5-24)
[2024-08-23] MEDS: SODIUM CHLORIDE 0.9 % (FLUSH) 10 ML SYRINGE IVF (06:38)
[2024-08-23] MEDS: LABETALOL HCL 100 MG TABLET 200 MG PO (07:53)
[2024-08-23] MEDS: ACETAMINOPHEN 500 MG TABLET 1000 MG PO (07:53)
[2024-08-23] MEDS: DOCUSATE SODIUM 100 MG CAPSULE PO (07:53)
[2024-08-23] MEDS: LEVOTHYROXINE 100 MCG TABLET PO (08:01)
[2024-08-23 08:18] VITALS: BP 121/76; PULSE 82; RESP 16; TEMP 37; O2SAT 98
--- NOTE | 2024-08-23 08:56 | PC.NURSE ---
Patient discharged home. Wants to see her new baby at [facility]. Left ambulatory with significant other. PIVs taken out and catheter intact. Will get labs today in [place]. Will call clinic and make appointment for BP in 3-5 days, and will make her 2 week and 6 week follow up as well. All questions answered.
--- NOTE | 2024-08-23 11:39 | P.DS_ITS ---
DS: Providers Provider Time Seen by Provider: 07:15 Date Seen: 08/23/24 Date of admission: 08/21/24 21:33 Primary care physician: Chung Fernando MD Admitting Clinician: Phyllis Stoddard MD Attending Physician on discharge: Darren Mackay MD Date of Discharge: 08/23/24 DS: Diagnosis Discharge Diagnosis (1) Pre-eclampsia superimposed on chronic hypertension: Status: Acute Problem details: Severe preeclampsia based on transaminitis (2) Status post delivery: Status: Acute (3) Subclinical hypothyroidism: Status: Acute Exam Narrative: Exam Narrative: VITAL SIGNS: As noted above. GENERAL APPEARANCE: Alert, cooperative female in no acute distress. MOOD & AFFECT: Normal. HEART: Regular rate and rhythm without murmurs. LUNGS: Lungs are clear to auscultation bilaterally. No crackles, wheezes, or rhonchi. ABDOMEN: Soft, non-distended and nontender. Incision healing well, no surrounding erythema, induration or abnormal discharge. : Minimal spotting. EXTREMITIES: Nonedematous. Well perfused. Nontender. NEURO: Intact. Const: Vital Signs, click to edit/add: Vital Signs - 24 hr 08/22/24 12:10 08/22/24 12:40 08/22/24 13:10 Temperature 97.8 F Pulse Rate [Pulse Oximeter] 66 Respiratory Rate 16 18 18 Blood Pressure [Ri ght Arm] 127/79 Pulse Oximetry 97 Oxygen Delivery Me thod Room Air 08/22/24 15:29 08/22/24 15:29 08/22/24 16:30 Temperature 97.6 F Pulse Rate [Pulse Oximeter] 66 Respiratory Rate 16 16 16 Blood Pressure [Ri ght Arm] 116/71 Pulse Oximetry 97 Oxygen Delivery Me thod Room Air 08/22/24 17:30 08/22/24 18:30 08/22/24 19:10 Temperature Pulse Rate [Pulse Oximeter] Respiratory Rate 16 16 16 Blood Pressure [Ri ght Arm] Pulse Oximetry Oxygen Delivery Me thod 08/22/24 19:30 08/22/24 20:10 08/22/24 21:10 Temperature 97.9 F Pulse Rate [Pulse Oximeter] 66 Respiratory Rate 16 16 16 Blood Pressure [Ri ght Arm] 130/86 Pulse Oximetry 99 Oxygen Delivery Me thod Room Air 08/22/24 21:14 08/22/24 21:55 08/22/24 22:10 Temperature Pulse Rate [Pulse Oximeter] 58 L 65 Respiratory Rate 12 12 Blood Pressure [Ri ght Arm] 153/90 H 133/84 Pulse Oximetry 100 Oxygen Delivery Me thod Room Air 08/22/24 22:58 08/23/24 00:10 08/23/24 00:38 Temperature 98.4 F Pulse Rate [Pulse Oximeter] 73 Respiratory Rate 16 12 12 Blood Pressure [Ri ght Arm] 131/80 Pulse Oximetry Oxygen Delivery Me thod 08/23/24 02:28 08/23/24 08:18 Temperature 97.9 F 98.6 F Pulse Rate [Pulse Oximeter] 71 82 Respiratory Rate 16 16 Blood Pressure [Ri ght Arm] 116/80 121/76 Pulse Oximetry 97 98 Oxygen Delivery Me thod Room Air Room Air OB - DS: Summary Hospital Course Hospital Course: The patient is a 43 year old G 4 P0222 at 35 5/7 weeks gestation that was admitted to the Center on 08/21/24 for repeat delivery due to chronic hypertension with superimposed preeclampsia with severe features.She had an uncomplicated delivery. She delivered a viable male . She is breast feeding. Patient completed 24 hours of magnesium sulfate infusion for seizure prophylaxis. Unfortunately, her baby was transferred to NICU and patient is understandably desperate to be re united with her . We had discussed usual recommendation for observation after surgery and in the setting of preeclampsia. Patient has great insight on her condition, is able to follow close monitoring and our team has decided that it is reasonable to proceed with discharge at the moment. Liver enzymes have stabilized and seem to be decreasing, we do plan to repeat them again later today. BPs have been well controlled with current regimen of labetalol and there are no [employer] irritability sx. Discussed recommendation to continue to monitor BPs at least 2-3 times per day and strict instructions to be re evaluated. Also plan to have a follow up in person in clinic in 3-5 days. All of this information was shared with her mother present. Peripartum Data Infant delivery method: Repeat Section Procedures: Procedures Operation Date: 08/21/24 23:15 Actual Procedure Side Surgeon p Repeat Section, Bilateral salpingectomy Phyllis Stoddard MD complications: none Infant Gender: Male Status at Discharge Functional status at discharge: independent ambulation Overall status at discharge: patient is progressing back to baseline Time Spent with Patient Time attestation: Total time spent providing and/or coordinating discharge services: Time spent: Less than 30 minutes Discharge Plan Discharge Disposition: Home, Self-Care Date of Admission: 08/21/24 21:33 Attending Provider on Discharge: Brittani Mackay Primary Care Provider: Chung Fernando Condition: Stable Anticipated Discharge Date/Time: 08/23/24 07:17 Discharge Medications: New acetaminophen 500 mg Tablet 1,000 mg PO Q6H PRN (Reason: Pain) Qty: 30 0RF ferrous sulfate 325 mg (65 mg iron) Tablet 325 mg PO Q48H Qty: 30 0RF docusate sodium 100 mg Capsule 100 mg PO DAILY Qty: 30 0RF ibuprofen 600 mg Tablet 600 mg PO Q6H PRN (Reason: Pain) Qty: 30 0RF Continued DHA 200 mg capsule 200 mg PO DAILY PRN cholecalciferol (vitamin D3) 10 mcg (400 unit) capsule 10 mcg PO QDAY labetalol 100 mg tablet 200 mg PO BID levothyroxine 100 mcg tablet 100 mcg PO QDAY Qty: 90 1RF omeprazole 40 mg capsule,delayed release(DR/EC) 40 mg PO QDAY Qty: 30 0RF Discontinued aspirin [Adult Aspirin Regimen] 81 mg tablet,delayed release (DR/EC) 81 mg PO QDAY famotidine 20 mg tablet 20 mg PO QDAY No Action oxycodone 5 mg tablet 5 mg PO Q6H PRN (Reason: pain) Qty: 14 0RF Discharge Orders: Discharge Order (Routine); Ordered 08/23/24 Ordered By: Brittani Mackay Patient Education: OB /Breast Feeding Additional Instructions: Needs to come in to re evaluate liver enzymes 08/24/24 Measure blood pressures at home twice a day. Notify clinic if there are blood pressures persistently more than 150 systolics, 100s diastolics or if any symptoms such as headaches that do not go away with pain medication, visual changes such as dark spots in vision, pain in the upper abdomen-that moves towards the upper right side. Notify clinic if there are blood pressures persistently less than 90 seconds systolics, 50s diastolics or if there is any associated symptoms such as lightheadedness, dizziness, shortness of breath, heart palpitations. Follow-up in clinic in 3-5 days after discharge for blood pressure check, review of antihypertensive medication regimen. Follow-up in clinic in 2 weeks for incision check and follow-up. Follow-up in 6 weeks in clinic for regular visit. Activity Level: No strenuous activity and No Weight Bearing Activity Detail: Nothing vaginally for 6 weeks Discharge Diet: Regular Follow Up Appointments: Chung Fernando MD [Primary Care Provider] - Forms: [employer] Info Instructions
[2024-08-24 04:27] LABS: Rapid Plasma Reagin (RPR) Non Reactive (Non Reactive)
== END 2024-08-23 09:01 | disposition home or self-care (01) | DRG 785 ==
PROVIDERS: Admitting Provider Obstetrics & Gynecology; PCP Family Medicine; Visit Provider Obstetrics & Gynecology
PROC: (CPT 59514; principal; 2024-08-21 23:00)
DX: O14.14 Severe pre-eclampsia complicating childbirth (principal); O10.02 Pre-existing essential hypertension complicating childbirth; Z3A.35 35 weeks gestation of pregnancy; O99.284 Endocrine, nutritional and metabolic diseases complicating childbirth; E03.8 Other specified hypothyroidism; O99.62 Diseases of the digestive system complicating childbirth; K21.9 Gastro-esophageal reflux disease without esophagitis; Z30.2 Encounter for sterilization; G89.18 Other acute postprocedural pain; Z37.0 Single live birth
CPT/HCPCS: 01961; 36415; 64488; 76942; 82565; 83735; 84450; 84460; 84520; 85018; 85025; 85027; 86592; 86850; 86900; 86901; 88302; 88307; 99140; A9270; C9290; J0665; J0690; J1100; J1200; J1885; J2274; J2405; J2590; J3475; J7120

== ENCOUNTER 2024-08-23 10:30 | Outpatient (CLI) | payer OTHER, SELFPAY | END 2024-08-23 10:31 | disposition home or self-care (01) | PROVIDERS: PCP Family Medicine; Visit Provider Obstetrics & Gynecology | DX: O09.523 Supervision of elderly multigravida, third trimester (principal); Z3A.35 35 weeks gestation of pregnancy | CPT/HCPCS: 82565; 82570; 84156; 84450; 84460; 84520; 84550 ==

== ENCOUNTER 2024-08-24 08:22 | Outpatient (CLI) | payer OTHER, SELFPAY | END 2024-08-24 08:23 | disposition home or self-care (01) | PROVIDERS: PCP Family Medicine; Visit Provider Obstetrics & Gynecology | DX: O14.15 Severe pre-eclampsia, complicating the puerperium (principal) | CPT/HCPCS: 84450; 84460 ==

== ENCOUNTER 2024-08-25 09:25 | Outpatient (CLI) | payer OTHER, SELFPAY | END 2024-08-25 09:26 | disposition home or self-care (01) | PROVIDERS: PCP Family Medicine; Visit Provider Obstetrics & Gynecology | DX: O14.15 Severe pre-eclampsia, complicating the puerperium (principal) | CPT/HCPCS: 80053; 83615; 85384; 85610; 85730 ==

== ENCOUNTER 2024-09-01 12:43 | Outpatient (CLI) | payer OTHER, SELFPAY | END 2024-09-01 12:44 | disposition home or self-care (01) | LOC: NFLDREF 12:43 | PROVIDERS: PCP Family Medicine; Visit Provider Obstetrics & Gynecology | DX: Z39.2 Encounter for routine postpartum follow-up (principal) | CPT/HCPCS: 84443; 84450; 84460 ==

== ENCOUNTER 2024-10-02 13:58 | Outpatient (CLI) | payer OTHER, SELFPAY | END 2024-10-02 13:59 | disposition home or self-care (01) | LOC: NFLDREF 13:58 | PROVIDERS: PCP Family Medicine; Visit Provider Physician Assistant | DX: E03.9 Hypothyroidism, unspecified (principal) | CPT/HCPCS: 84443 ==